=== PATIENT | female | born 1980 | race Caucasian/White ===

== ENCOUNTER 2024-08-06 18:45 | Emergency (ER) | payer OTHER, SELFPAY ==
--- NOTE | ~2024-08-06 | XR_ITS ---
XR foot RT min 3V Ordering provider: Asa Thao MD History: . LATERAL PAIN AFTER STEPPIMG DOWN AWKWARDLY . Comparison: None. FINDINGS: BONES: Healed fracture in the base of the fifth metatarsal bone. Calcaneus spur. Ossification of the insertion of the tendo Achilles. JOINT SPACES: Normal. No tarsal coalition. SOFT TISSUES: Normal. IMPRESSION: No acute osseous abnormality of the right foot. Reviewed, dictated and finalized at location A. PI ARCHITECT
--- NOTE | ~2024-08-06 | XR_ITS ---
XR ankle LT min 3V Ordering provider: Asa Thao MD History: . LATERAL PAIN AFTER STEPPING DOWN AWKWARDLY . Comparison: None. FINDINGS: BONES: No acute fracture or dislocation. Calcaneus spur. Ossification of the insertion of the tendo A chilles. JOINT SPACES: The ankle mortise is normal. SOFT TISSUES: Normal. IMPRESSION: No acute osseous abnormality left ankle. Reviewed, dictated and finalized at location A. IT PROFESSIONAL
[2024-08-06 18:45] VITALS: BP 160/102; PULSE 97; RESP 18; TEMP 36.4; O2SAT 97
--- NOTE | 2024-08-06 19:21 | ED_ITS ---
HPI - Extremity Injury (Lower) General Chief Complaint: Extremity Injury, Lower Stated Complaint: right foot injury Source: patient Mode of arrival: ambulatory Limitations: no limitations History of Present Illness HPI Narrative: patient is a 44-year-old female with a fall ground level to the right lower extremity. She hurt her right ankle/ foot. No other injuries. MD complaint: ankle injury ( Right) and foot injury ( right) Onset (ago): day(s) (1) Injury: Right: ankle and foot Type of Injury: inversion Place: street/outdoors Severity: moderate Severity scale (1-10): 3 Relieving factors: immobilization Exacerbating factors: weight bearing and movement Context: fall, direct blow and walking Associated symptoms: swelling and able to partially bear weight Other symptoms: none Treatments prior to arrival: other ( none) Related Data Home Medications Medication Instructions Recorded Confirmed No Home Medications 08/06/24 08/06/24 Allergies Allergy/AdvReac Type Severity Reaction Status Date / Time No Known Allergies Allergy Verified 08/06/24 19:08 Review of Systems Review of Systems: All systems reviewed & are unremarkable except as noted in HPI and below Constitutional: Constitutional: Reports no additional constitutional complaints Eyes: Eyes: Reports no additional eye complaints ENT: Reports system reviewed and no additional complaints, except as documented Cardiovascular: Cardiovascular: Reports no additional cardiovascular complaints Respiratory: Respiratory: Reports no additional respiratory complaints Gastrointestinal: Gastrointestinal: Reports no additional gastrointestinal complaints Genitourinary: Genitourinary: Reports no additional female genitourinary complaints Musculoskeletal: Musculoskeletal: Reports no additional musculoskeletal complaints Integumentary/Breasts: Skin/Breast: Reports system reviewed and no additional complaints, except as docu Neurologic: Reports system reviewed and no additional complaints, except as documented Psychiatric: Psychiatric: Reports no additional psychiatric complaints Endocrine: Endocrine: Reports no additional endocrine complaints Hematologic/Lymphatic: Hematologic/Lymphatic: Reports no additional hematologic/lymphatic complaints Allergic/Immunologic: Allergic/Immunologic: Reports no additional allergic/immunologic complaints Exam Const: General: healthy appearing Nutritional Appearance: well nourished Orientation/consciousness: patient oriented x3 Limitations: no limitations HENMT: Head: normal to inspection Ears: external ears normal Face/Nose/Sinus: Normal external nose present Eyes: Conjunctivae: conjunctivae normal Pupils: Equal, round and reactive pupils present EOM: EOMs intact bilaterally Neck: Neck: normal visual inspection Chest: Chest palpation & inspection: normal inspection of the chest Resp: Effort & Inspection: normal respiratory effort and not labored Auscultation: clear to auscultation bilaterally and no crackles Cardio: Rate: regular rate Rhythm: regular rhythm Heart sounds: no murmurs GI: Inspection: non-distended GI Palp: Yes Soft to palpation and No Tenderness to palpation present (GI) Auscultation: normal bowel sounds : General: Yes bladder normal to palpation Back/Spine/Pelvis: Back: no CVA tenderness Skin: General skin exam: normal color Rashes: no rashes Wounds: no wounds Neuro: General: patient oriented x3 Cranial nerves: Yes Nystagmus not present Speech: normal speech Gait exam (Neuro): gait abnormal Other: gait disturbance secondary to right ankle pain Extrem: General: normal to inspection Other: right ankle is tender to palpation medially and laterally and into the foot proximally Psych: Mental Status: mental status grossly normal Affect: normal affect Attitude: cooperative Course Vital Signs Vital signs: Vital Signs Temperature 36.4 C 08/06/24 18:45 Pulse Rate 97 08/06/24 18:45 Respiratory Rate 18 08/06/24 18:45 Blood Pressure 160/102 H 08/06/24 18:45 Pulse Oximetry 97 08/06/24 18:45 Oxygen Delivery Room Air 08/06/24 18:45 Temperature 36.4 C 08/06/24 18:45 Pulse Rate 97 08/06/24 18:45 Respiratory Rate 18 08/06/24 18:45 Blood Pressure 160/102 H 08/06/24 18:45 Pulse Oximetry 97 08/06/24 18:45 Oxygen Delivery Room Air 08/06/24 18:45 MDM - Extremity Injury (Lower) MDM Narrative Medical decision making narrative: patient is a 44-year-old female with a right ankle injury. We will get x-rays. Imaging Data Attestation: I personally reviewed and interpreted this imaging study as foll ows: Radiologist's impression: X-ray of the right ankle and foot is negative for acute process Discharge Plan Discharge Clinical Impression: Ankle sprain and strain Patient Disposition: Home, Self-Care Condition: Stable Instructions: Ankle Sprain (DC) Prescriptions: No Action No Home Medications Follow-up/Referrals: UNKNOWN,DOCTOR [Primary Care Provider] - Time of Disposition: 21:07
--- NOTE | 2024-08-06 19:49 | PC.NURSE ---
XRAY AT THE BEDSIDE
--- NOTE | 2024-08-06 20:46 | PC.NURSE ---
PATEINT IS RESTING ON STRETCHER. WAITING ON XRAY RESULTS.
[2024-08-06 21:16] VITALS: BP 127/68; PULSE 79; RESP 18; TEMP 36.2; O2SAT 97
== END 2024-08-06 21:17 | disposition home or self-care (01) ==
PROVIDERS: Emergency Provider Emergency Medicine
DX: S93.402A Sprain of unspecified ligament of left ankle, initial encounter (principal); S96.912A Strain of unspecified muscle and tendon at ankle and foot level, left foot, initial encounter; W18.30XA Fall on same level, unspecified, initial encounter; Y92.410 Unspecified street and highway as the place of occurrence of the external cause
CPT/HCPCS: 73610; 73630; 99284; L4350